=== PATIENT | female | born 2000 | race African-American/Black ===

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

== ENCOUNTER 2020-05-16 01:42 | Outpatient (CLI) | payer OTHER ==
[~2020-05-16] VITALS: Ht 180.3 cm; Wt 134.7 kg
[2020-05-16 01:50] VITALS: BP 114/69
--- NOTE | 2020-05-16 01:50 | NUR ---
EDD CUNHA presented to unit via ambulation from ED,with c/o ABD PAIN. EDD CUNHA weighed, gowned, voided, and to bed. EFHM and TOCO applied, VS taken. EDD CUNHA oriented to bed controls, call light, TV, heat, and A/C controls.
--- NOTE | 2020-05-16 02:00 | NUR ---
Pt c/o right sided lower abdominal pain that radiates to the back. Pt states the pain started around 1800. States the pain was 7/10. Denies any nausea, vomiting or difficult urinating. Pt states pain has decreased since then and is now a dull ache in her lower lumbar.
[2020-05-16 02:15] VITALS: BP 114/69
[2020-05-16 02:17] LABS: BILIRUBIN,URINE NEGATIVE (NEGATIVE); CLARITY,URINE CLEAR; COLOR,URINE YELLOW; GLUCOSE, URINE (UA) NEGATIVE (NEGATIVE); KETONES,URINE NEGATIVE (NEGATIVE); LEUKOCYTE ESTERASE ,URINE 2+ (NEGATIVE); NITRITE,URINE NEGATIVE (NEGATIVE); PH,URINE 6.5 (5-9); PROTEIN,URINE NEGATIVE (NEGATIVE)
[2020-05-16 02:48] LABS: BACTERIA,URINE MODERATE /HPF; CALCIUM OXALATE CRYSTALS,UR FEW /LPF; RBC,URINE RARE /HPF; SQUAMOUS EPITHELIAL CELL,UR 25-50 /HPF; WBC,URINE 50-100 /HPF
[2020-05-16] MEDS ORDERED: AMOXICILLIN 250 MG (POLYMOX) CAP PO ONE (02:58)
[2020-05-16] MEDS ORDERED: PREN-53 PO (03:00)
[2020-05-16] MEDS ORDERED: AMOXICILLIN 500 MG (POLYMOX) CAP PO ONE (03:00)
[2020-05-16] MEDS ORDERED: AMOX500C2 PO (03:05)
--- NOTE | 2020-05-16 03:10 | NUR ---
Discharge instructions verbalized with pt. pt verbalized understanding. labor precautions given. Pt will follow up in clinic with Dr.Enoch Jernigan called into [facility]
--- NOTE | 2020-05-19 09:52 | Physician Query-Final Dx ---
Clinic Account Progress/Dx Physician Query: Please give diagnosis Please include # weeks gestation Date of Service May 16, 2020 at 01:42 ERVIN MARLOW May 19, 2020 09:52
== END 2020-05-16 03:10 ==
LOC: WSo 01:42 → LDRP 01:48 → WSo 03:10
PROVIDERS: ATTEND Family Medicine
DX: O26.893 Other specified pregnancy related conditions, third trimester (principal); R10.9 Unspecified abdominal pain; Z3A.29 29 weeks gestation of pregnancy
CPT/HCPCS: 81000; 87077; 87088; G0463; 99213

== ENCOUNTER 2020-07-30 14:33 | Inpatient (IN) | payer OTHER ==
[2020-07-30] VITALS (11 sets, daily range): BP systolic 108–133; BP diastolic 56–77
[~2020-07-30] VITALS: Ht 177.8 cm; Wt 134.5 kg
[~2020-07-30 14:33] MED LIST changes: +AMOX500C2 PO; +PREN-53 PO
--- NOTE | 2020-07-30 14:40 | NUR ---
EDD CUNHA presented to unit via w/c from ED, accompanied by staff, with c/o CONTRACTIONS. EDD CUNHA weighed, gowned, voided, and to bed. EFHM and TOCO applied, VS taken. EDD CUNHA oriented to bed controls, call light, TV, heat, and A/C controls.
--- NOTE | 2020-07-30 15:10 | NUR ---
dr ordoñez called reviewed assessment, vitals, findings. new orders received.
[2020-07-30 15:30] LABS: BILIRUBIN,URINE 1+ (NEGATIVE); CLARITY,URINE CLEAR; COLOR,URINE AMBER; GLUCOSE, URINE (UA) NEGATIVE (NEGATIVE); KETONES,URINE TRACE (NEGATIVE); LEUKOCYTE ESTERASE ,URINE 3+ (NEGATIVE); NITRITE,URINE NEGATIVE (NEGATIVE); PROTEIN,URINE 1+ (NEGATIVE)
[2020-07-30 15:39] LABS: BACTERIA,URINE FEW /HPF; WBC,URINE 50-100 /HPF
[2020-07-30 15:51] LABS: BASOPHILS % (AUTO) 0 % (0-10); EOSINOPHILS % (AUTO) 0 % (0-10); HEMATOCRIT 34 % (35-52); HEMOGLOBIN 10.8 g/dL (11.5-16.0); LYMPHOCYTES # (AUTO) 0.8 10^3/uL (1.0-4.0); LYMPHOCYTES % (AUTO) 5 % (12-44); MEAN CORPUSCULAR HEMOGLOBIN 25 pg (25-34); MEAN CORPUSCULAR HGB CONC 32 g/dL (32-36); MEAN CORPUSCULAR VOLUME 78 fL (80-99); MEAN PLATELET VOLUME 10.7 fL (9.0-12.2); MONOCYTES # (AUTO) 0.8 10^3/uL (0.0-1.0); MONOCYTES % (AUTO) 5 % (0-12); NEUTROPHILS # (AUTO) 15.3 10^3/uL (1.8-7.8); NEUTROPHILS % (AUTO) 89 % (42-75); PLATELET COUNT 214 10^3/uL (130-400); WHITE BLOOD COUNT 17.1 10^3/uL (4.3-11.0)
[2020-07-30 16:04] LABS: ALBUMIN 3.7 GM/DL (3.2-4.5)
[2020-07-30 16:05] LABS: CHLORIDE 103 MMOL/L (98-107); POTASSIUM 3.7 MMOL/L (3.6-5.0); SODIUM 134 MMOL/L (135-145)
[2020-07-30 16:06] LABS: CALCIUM 9.4 MG/DL (8.5-10.1)
[2020-07-30 16:07] LABS: GLUCOSE 93 MG/DL (70-105); TOTAL PROTEIN 7.1 GM/DL (6.4-8.2)
[2020-07-30 16:08] LABS: CARBON DIOXIDE 20 MMOL/L (21-32)
[2020-07-30 16:09] LABS: BILIRUBIN,TOTAL 1.2 MG/DL (0.1-1.0)
[2020-07-30 16:10] LABS: ALKALINE PHOSPHATASE 144 U/L (40-136)
[2020-07-30 16:11] LABS: CREATININE SERUM 0.68 MG/DL (0.60-1.30); GFR ESTIMATED > 60
[2020-07-30 16:12] LABS: BUN/CREATININE RATIO 9
[2020-07-30 16:13] LABS: ALANINE AMINOTRANSFERASE 11 U/L (0-55)
--- NOTE | 2020-07-30 16:40 | NUR ---
DR GREEN TO OB FLOOR. INTO ROOM 319 TO ASSESS PATIENT STATUS AND INITIAL ASSESSMENT.
--- NOTE | 2020-07-30 17:04 | History & Physical ---
HPI History of Present Illness: 20-year-old currently at 40 weeks gestation presents to women's services with reports of low-grade fever and overall just not feeling very well. She has had slight shortness of breath but she has had no cough at least not on a regular basis. She does live with her sister who is supposedly in normal state of health. Patient denies being around anyone with coronavirus unless her sister had been around someone. She was seen yesterday at [facility] and had cervix check and she was noted to be 3 cm. Source: patient Date seen by provider: Jul 30, 2020 Time Seen by Provider: 17:00 Attending Physician Adriane Payne MD PCP Center/[facility] Consult Date of Admission Home Medications Home Medications Reviewed patient Home Medication Reconciliation performed by pharmacy medication reconciliations holter technician and/or nursing. Patients Allergies have been reviewed. Allergies Coded Allergies: No Known Drug Allergies (Unverified , 01/29/13) FUJ-Psnlvz-Qtuhob Hx Patient Social History 2nd Hand Smoke Exposure: No Recent Hopitalizations: No Immunizations Up To Date Date of Influenza Vaccine: Jul 07, 2020 Review of Systems ([facility]) Constitutional: see HPI Reviewed Test Results Reviewed Test Results Lab Laboratory Tests Test 07/30/20 15:20 07/30/20 15:42 07/30/20 15:55 Range/Units Urine Color ERIC H Urine Clarity CLEAR Urine pH 7.0 5-9 Urine Specific [place] 1.015 L 1.016-1.022 Urine Protein 1+ H NEGATIVE Urine Glucose (UA) NEGATIVE NEGATIVE Urine Ketones TRACE H NEGATIVE Urine Nitrite NEGATIVE NEGATIVE Urine Bilirubin 1+ H NEGATIVE Urine Urobilinogen 2.0 < = 1.0 MG/DL Urine Leukocyte Esterase 3+ H NEGATIVE Urine RBC (Auto) NEGATIVE NEGATIVE Urine RBC NONE /HPF Urine WBC 50-100 H /HPF Urine Squamous Epithelial Cells 10-25 H /HPF Urine Crystals NONE /LPF Urine Bacteria FEW H /HPF Urine Casts NONE /LPF Urine Mucus NEGATIVE /LPF Urine Culture Indicated CULTURE PENDING White Blood Count 17.1 H 4.3-11.0 10^3/uL Red Blood Count 4.33 3.80-5.11 10^6/uL Hemoglobin 10.8 L 11.5-16.0 g/dL Hematocrit 34 L 35-52 % Mean Corpuscular Volume 78 L 80-99 fL Mean Corpuscular Hemoglobin 25 25-34 pg Mean Corpuscular Hemoglobin Concent 32 32-36 g/dL Red Cell Distribution Width 14.5 10.0-14.5 % Platelet Count 214 130-400 10^3/uL Mean Platelet Volume 10.7 9.0-12.2 fL Immature Granulocyte % (Auto) 1 % Neutrophils (%) (Auto) 89 H 42-75 % Lymphocytes (%) (Auto) 5 L 12-44 % Monocytes (%) (Auto) 5 0-12 % Eosinophils (%) (Auto) 0 0-10 % Basophils (%) (Auto) 0 0-10 % Neutrophils # (Auto) 15.3 H 1.8-7.8 10^3/uL Lymphocytes # (Auto) 0.8 L 1.0-4.0 10^3/uL Monocytes # (Auto) 0.8 0.0-1.0 10^3/uL Eosinophils # (Auto) 0.0 0.0-0.3 10^3/uL Basophils # (Auto) 0.0 0.0-0.1 10^3/uL Immature Granulocyte # (Auto) 0.2 H 0.0-0.1 10^3/uL Sodium Level 134 L 135-145 MMOL/L Potassium Level 3.7 3.6-5.0 MMOL/L Chloride Level 103 98-107 MMOL/L Carbon Dioxide Level 20 L 21-32 MMOL/L Anion Gap 11 5-14 MMOL/L Blood Urea Nitrogen 6 L 7-18 MG/DL Creatinine 0.68 0.60-1.30 MG/DL Estimat Glomerular Filtration Rate > 60 BUN/Creatinine Ratio 9 Glucose Level 93 70-105 MG/DL Calcium Level 9.4 8.5-10.1 MG/DL Corrected Calcium 9.6 8.5-10.1 MG/DL Total Bilirubin 1.2 H 0.1-1.0 MG/DL Aspartate Amino Transf (AST/SGOT) 10 5-34 U/L Alanine Aminotransferase (ALT/SGPT) 11 0-55 U/L Alkaline Phosphatase 144 H 40-136 U/L Total Protein 7.1 6.4-8.2 GM/DL Albumin 3.7 3.2-4.5 GM/DL Physical Exam-([facility]) Physical Exam Vital Signs VS - Last 72 Hours, by Label 07/30/20 07/30/20 14:40 15:00 Temp 36.3 Pulse 127 Resp 22 Pulse Ox 98 98 O2 Delivery Room Air Room Air Capillary Refill : General Appearance: no apparent distress (at time of my exam) Neck: supple Respiratory: lungs clear Cardiovascular: regular rate, rhythm (rate of 110) Gastrointestinal: soft, other (Uterus non-tender) Extremities: normal capillary refill Neurologic/Psychiatric: alert, normal mood/affect, oriented x 3 Skin: normal color Assessment/Plan Assessment/Plan Admission Dx 1. Febrile illness -covid 19 screen neg -UTI based upon initial UA. Culture pending -exclude sepsis. 2. IUP at 40 weeks. -induction planned for Aug [address] Lucas (her primary ob) Admission Status: Observation Assessment & Plan 1. Febrile illness -covid 19 screen neg -UTI based upon initial UA. Urine culture pending -exclude sepsis. She does have an elevated white blood cell count but this may be related. She is also noted to have elevated pulse. Blood culture pending Awaiting LAC Intravenous fluids will begin a D5 LR at 125 mL per hour. Recheck laboratory in the morning which will include CBC as well as chemistry 14. 2. IUP at 40 weeks. -induction planned for Aug [address] Lucas (her primary ob) ADRIANE PAYNE MD Jul 30, 2020 17:04
[2020-07-30 17:22] LABS: PROTHROMBIN TIME PATIENT 13.5 SEC (12.2-14.7)
--- NOTE | 2020-07-30 17:35 | NUR ---
[id number] IV FLUIDS HUNG ORDERED. ABX STARTED. SEE EMAR. UP TO BATHROOM. COVID TESTING PERFORMED BILATERAL NARES BY THIS RN. SENT TO LAB. PATIENT REPORTS INCREASING ABDOMINAL PAIN. FAMILY AT BEDSIDE.
[2020-07-30] MEDS: D5 LR IV SOLUTION 1,000 ML IV SCH (17:45)
[2020-07-30] MEDS: cefTRIAXone FOR IV USE 1,000 MG in WATER (STERILE) FOR INJECTION 10 ML IV SCH (17:45)
--- NOTE | 2020-07-30 18:35 | NUR ---
dr ordoñez notified of current vitals sign, HR and increasing pain. new orders received. continuing to monitor.
[2020-07-30] MEDS ORDERED: BUTORPHANOL INJ 2 MG/ML (STADOL) VIAL IV PRN (18:45)
[2020-07-30] MEDS ORDERED: ACETAMINOPHEN 500 MG TAB (TYLENOL) PO PRN (18:45)
--- NOTE | 2020-07-30 20:26 | NUR ---
Dr. Payne called, plan of care reviewed with Discussed prior lab results and care, pt positive for chlamydia x2 and treated during , new orders received. Discussed MHR with and made aware of times, temp and HR when pt had fever.
[2020-07-30] MEDS ORDERED: AZITHROMYCIN 250 MG TAB (ZITHROMAX) PO ONE ×2 (20:41→21:00)
[2020-07-30] MEDS ORDERED: AZITHROMYCIN 100 MG/5 ML (ZITHROMAX) 15ML BTL PO ONE (20:45)
[2020-07-30 21:40] LABS: AMPHETAMINE SCREEN, URINE NEGATIVE (NEGATIVE); BARBITURATE SCREEN URINE NEGATIVE (NEGATIVE); BENZODIAZEPINES SCREEN URINE NEGATIVE (NEGATIVE); CANNABINOID SCREEN, URINE NEGATIVE (NEGATIVE); COCAINE SCREEN URINE NEGATIVE (NEGATIVE); METHADONE STAT NEGATIVE (NEGATIVE); METHAMPHETAMINE SCREEN URINE S NEGATIVE (NEGATIVE); OPIATE SCREEN URINE NEGATIVE (NEGATIVE); OXYCODONE STAT NEGATIVE (NEGATIVE); PROPOXYPHENE STAT NEGATIVE (NEGATIVE); TRICYCLIC ANTIDEPRESSANTS SCRE NEGATIVE (NEGATIVE)
[2020-07-31] MEDS: D5 LR IV SOLUTION 1,000 ML IV SCH ×4 (01:32→23:43)
[2020-07-31 05:15] VITALS: BP 119/66
--- NOTE | 2020-07-31 05:15 | NUR ---
Lab and RN to room at this time, pt denies pain unless she is getting up to BR.
[2020-07-31 05:30] LABS: BASOPHILS % (AUTO) 0 % (0-10); EOSINOPHILS % (AUTO) 0 % (0-10); HEMATOCRIT 34 % (35-52); HEMOGLOBIN 10.8 g/dL (11.5-16.0); LYMPHOCYTES # (AUTO) 1.8 10^3/uL (1.0-4.0); LYMPHOCYTES % (AUTO) 10 % (12-44); MEAN CORPUSCULAR HEMOGLOBIN 25 pg (25-34); MEAN CORPUSCULAR HGB CONC 32 g/dL (32-36); MEAN CORPUSCULAR VOLUME 78 fL (80-99); MEAN PLATELET VOLUME 10.5 fL (9.0-12.2); MONOCYTES # (AUTO) 1.1 10^3/uL (0.0-1.0); MONOCYTES % (AUTO) 6 % (0-12); NEUTROPHILS # (AUTO) 14.1 10^3/uL (1.8-7.8); NEUTROPHILS % (AUTO) 82 % (42-75); PLATELET COUNT 222 10^3/uL (130-400); WHITE BLOOD COUNT 17.3 10^3/uL (4.3-11.0)
[2020-07-31 05:51] LABS: ALBUMIN 3.7 GM/DL (3.2-4.5); CHLORIDE 104 MMOL/L (98-107); POTASSIUM 3.9 MMOL/L (3.6-5.0); SODIUM 134 MMOL/L (135-145)
[2020-07-31 05:52] LABS: CALCIUM 9.2 MG/DL (8.5-10.1)
[2020-07-31 05:53] LABS: GLUCOSE 102 MG/DL (70-105); TOTAL PROTEIN 7.2 GM/DL (6.4-8.2)
[2020-07-31 05:54] LABS: CARBON DIOXIDE 20 MMOL/L (21-32)
[2020-07-31 05:55] LABS: BILIRUBIN,TOTAL 0.6 MG/DL (0.1-1.0)
[2020-07-31 05:57] LABS: ALKALINE PHOSPHATASE 142 U/L (40-136); CREATININE SERUM 0.63 MG/DL (0.60-1.30); GFR ESTIMATED > 60
[2020-07-31 05:58] LABS: BUN/CREATININE RATIO 8
[2020-07-31 06:00] LABS: ALANINE AMINOTRANSFERASE 12 U/L (0-55)
--- NOTE | 2020-07-31 07:05 | Progress Note ---
Subjective Subjective/Events-last exam Patient appears to be resting comfortably this morning. She reports pressure in the pelvis. She denies any back pain or currently any chest pain. She denies a cough. Focused Exam Lactate Level 07/30/20 16:54: Lactic Acid Level 0.71 Objective Exam Last Set of Vital Signs Vital Signs Date Time Temp Pulse Resp B/P (MAP) Pulse Ox O2 Delivery O2 Flow Rate FiO2 07/31/20 06:45 35.9 07/31/20 05:15 94 20 119/66 (83) 98 Room Air Capillary Refill : Less Than 3 Seconds I&O Intake and Output 07/31/20 00:00 Daily Weight Change No General: No Acute Distress Lungs: Clear to Auscultation Heart: Regular Rate (with a rate of upper 90s) Abdomen: Soft Other physical findings cervix check reveals presenting part ballotable. Cervix is soft and essentially unchanged at 3 cm. Results/Procedures Lab Laboratory Tests 07/30/20 15:00: Urine Protein 38H, Urine Creatinine 232H, Urine Protein/Creatinine Ratio 0.16 07/30/20 15:20: Urine Protein 1+H, Urine Color AMBERH, Urine Clarity CLEAR, Urine pH 7.0, Urine Specific [place] 1.015L, Urine Glucose (UA) NEGATIVE, Urine Ketones TRACEH, Urine Nitrite NEGATIVE, Urine Bilirubin 1+H, Urine Urobilinogen 2.0, Urine Leukocyte Esterase 3+H, Urine RBC (Auto) NEGATIVE, Urine RBC NONE, Urine WBC 50- 100H, Urine Squamous Epithelial Cells 10-25H, Urine Crystals NONE, Urine Bacteria FEWH, Urine Casts NONE, Urine Mucus NEGATIVE, Urine Culture Indicated CULTURE PENDING 07/30/20 15:42: White Blood Count 17.1H, Red Blood Count 4.33, Hemoglobin 10.8L, Hematocrit 34L, Mean Corpuscular Volume 78L, Mean Corpuscular Hemoglobin 25, Mean Corpuscular Hemoglobin Concent 32, Red Cell Distribution Width 14.5, Platelet Count 214, Mean Platelet Volume 10.7, Immature Granulocyte % (Auto) 1, Neutrophils (%) (Auto) 89H, Lymphocytes (%) (Auto) 5L, Monocytes (%) (Auto) 5, Eosinophils (%) (Auto) 0, Basophils (%) (Auto) 0, Neutrophils # (Auto) 15.3H, Lymphocytes # (Auto) 0.8L, Monocytes # (Auto) 0.8, Eosinophils # (Auto) 0.0, Basophils # (Auto) 0.0, Immature Granulocyte # (Auto) 0.2H, Sodium Level 134L, Potassium Level 3.7, Chloride Level 103, Carbon Dioxide Level 20L, Anion Gap 11, Blood Urea Nitrogen 6L, Creatinine 0.68, Estimat Glomerular Filtration Rate > 60, BUN/Creatinine Ratio 9, Glucose Level 93, Calcium Level 9.4, Corrected Calcium 9.6, Total Bilirubin 1.2H, Aspartate Amino Transf (AST/SGOT) 10, Alanine Aminotransferase (ALT/SGPT) 11, Alkaline Phosphatase 144H, Total Protein 7.1, Albumin 3.7 07/30/20 15:55: Coronavirus 2019 (JORJE) Negative 07/30/20 16:54: Prothrombin Time 13.5, INR Comment 1.0, Activated Partial Thromboplast Time 28, Lactic Acid Level 0.71 07/30/20 17:50: 07/30/20 20:51: Urine Opiates Screen NEGATIVE, Urine Oxycodone Screen NEGATIVE, Urine Methadone Screen NEGATIVE, Urine Propoxyphene Screen NEGATIVE, Urine Barbiturates Screen NEGATIVE, Ur Tricyclic Antidepressants Screen NEGATIVE, Urine Phencyclidine Screen NEGATIVE, Urine Amphetamines Screen NEGATIVE, Urine Methamphetamines Screen NEGATIVE, Urine Benzodiazepines Screen NEGATIVE, Urine Cocaine Screen NEGATIVE, Urine Cannabinoids Screen NEGATIVE 07/31/20 05:10: White Blood Count 17.3H, Red Blood Count 4.41, Hemoglobin 10.8L, Hematocrit 34L, Mean Corpuscular Volume 78L, Mean Corpuscular Hemoglobin 25, Mean Corpuscular Hemoglobin Concent 32, Red Cell Distribution Width 14.6H, Platelet Count 222, Mean Platelet Volume 10.5, Immature Granulocyte % (Auto) 1, Neutrophils (%) (Auto) 82H, Lymphocytes (%) (Auto) 10L, Monocytes (%) (Auto) 6, Eosinophils (%) (Auto) 0, Basophils (%) (Auto) 0, Neutrophils # (Auto) 14.1H, Lymphocytes # (Auto) 1.8, Monocytes # (Auto) 1.1H, Eosinophils # (Auto) 0.0, Basophils # (Auto) 0.0, Immature Granulocyte # (Auto) 0.2H, Sodium Level 134L, Potassium Level 3.9, Chloride Level 104, Carbon Dioxide Level 20L, Anion Gap 10, Blood Urea Nitrogen 5L, Creatinine 0.63, Estimat Glomerular Filtration Rate > 60, BUN/Creatinine Ratio 8, Glucose Level 102, Calcium Level 9.2, Corrected Calcium 9.4, Total Bilirubin 0.6, Aspartate Amino Transf (AST/SGOT) 12, Alanine Aminotransferase (ALT/SGPT) 12, Alkaline Phosphatase 142H, Total Protein 7.2, Albumin 3.7 Assessment/Plan Assessment/Plan Assessment & Plan 1. Febrile illness -covid 19 screen neg -UTI based upon initial UA. Urine culture pending -exclude sepsis. She does have an elevated white blood cell count but this may be related. She is also noted to have elevated pulse. Blood culture pending Awaiting LAC Intravenous fluids will begin a D5 LR at 125 mL per hour. Recheck laboratory in the morning which will include CBC as well as chemistry 14. 07/31/2020 COVID-19 test is still pending. urine culture is pending. Day number 2 of Rocephin IV fluids continue at 125 mL per hour 2. IUP at 40 weeks. -induction planned for Aug [address] Lucas (her primary ob) Clinical Quality Measures DVT/VTE Risk/Contraindication: Risk Factor Score Per Nursin RFS Level Per Nursing on Admit: 2=Moderate ADRIANE GREEN MD Jul 31, 2020 07:05
[2020-07-31 08:20] VITALS: BP 124/66
[2020-07-31 13:00] VITALS: BP 105/62
[2020-07-31] MEDS: cefTRIAXone FOR IV USE 1,000 MG in WATER (STERILE) FOR INJECTION 10 ML IV SCH (16:08)
[2020-07-31 16:15] VITALS: BP 102/60
[2020-07-31 19:55] VITALS: BP 103/61
[2020-07-31 23:08] VITALS: BP 91/55
[2020-08-01] VITALS (48 sets, daily range): BP systolic 100–137; BP diastolic 51–81
[2020-08-01 05:09] LABS: BASOPHILS % (AUTO) 0 % (0-10); EOSINOPHILS # (AUTO) 0.1 10^3/uL (0.0-0.3); EOSINOPHILS % (AUTO) 1 % (0-10); HEMATOCRIT 33 % (35-52); HEMOGLOBIN 10.4 g/dL (11.5-16.0); LYMPHOCYTES # (AUTO) 2.2 10^3/uL (1.0-4.0); LYMPHOCYTES % (AUTO) 19 % (12-44); MEAN CORPUSCULAR HEMOGLOBIN 25 pg (25-34); MEAN CORPUSCULAR HGB CONC 32 g/dL (32-36); MEAN CORPUSCULAR VOLUME 78 fL (80-99); MEAN PLATELET VOLUME 10.3 fL (9.0-12.2); MONOCYTES # (AUTO) 0.7 10^3/uL (0.0-1.0); MONOCYTES % (AUTO) 6 % (0-12); NEUTROPHILS # (AUTO) 8.2 10^3/uL (1.8-7.8); NEUTROPHILS % (AUTO) 72 % (42-75); PLATELET COUNT 200 10^3/uL (130-400); WHITE BLOOD COUNT 11.4 10^3/uL (4.3-11.0)
--- NOTE | 2020-08-01 07:42 | Progress Note ---
Subjective Subjective/Events-last exam patient is feeling much better. She doesn't voice any contractions. Focused Exam Lactate Level 07/30/20 16:54: Lactic Acid Level 0.71 Objective Exam Last Set of Vital Signs Vital Signs Date Time Temp Pulse Resp B/P (MAP) Pulse Ox O2 Delivery O2 Flow Rate FiO2 08/01/20 04:10 36.1 74 20 118/57 (77) 97 Room Air Capillary Refill : Less Than 3 Seconds I&O Intake and Output 08/01/20 00:00 Intake Total 2900 ml Balance 2900 ml Intake IV Total 2900 ml General: No Acute Distress Lungs: Clear to Auscultation Heart: Regular Rate Abdomen: Soft Other physical findings cervix check reveals presenting part high. Cervical dilation previously reported 3 cm. Results/Procedures Lab Laboratory Tests 08/01/20 04:53: White Blood Count 11.4H, Red Blood Count 4.22, Hemoglobin 10.4L, Hematocrit 33L, Mean Corpuscular Volume 78L, Mean Corpuscular Hemoglobin 25, Mean Corpuscular Hemoglobin Concent 32, Red Cell Distribution Width 14.8H, Platelet Count 200, Mean Platelet Volume 10.3, Immature Granulocyte % (Auto) 1, Neutrophils (%) (Auto) 72, Lymphocytes (%) (Auto) 19, Monocytes (%) (Auto) 6, Eosinophils (%) (Auto) 1, Basophils (%) (Auto) 0, Neutrophils # (Auto) 8.2H, Lymphocytes # (Aut o) 2.2, Monocytes # (Auto) 0.7, Eosinophils # (Auto) 0.1, Basophils # (Auto) 0.0, Immature Granulocyte # (Auto) 0.2H Microbiology 07/30/20 Blood Culture - Preliminary, Resulted No growth 07/30/20 Urine Culture - Final, Complete Gram Pos Mixed Bacterial Sol Strep agalactiae Group B Assessment/Plan Assessment/Plan Assessment & Plan 1. Febrile illness -covid 19 screen neg -UTI based upon initial UA. Urine culture pending -exclude sepsis. She does have an elevated white blood cell count but this may be related. She is also noted to have elevated pulse. Blood culture pending Awaiting LAC Intravenous fluids will begin a D5 LR at 125 mL per hour. Recheck laboratory in the morning which will include CBC as well as chemistry 14. 07/31/2020 COVID-19 test is still pending. urine culture is pending. Day number 2 of Rocephin IV fluids continue at 125 mL per hour urine culture revealed group B strep. Blood cultures negative 08/01 COVID-19 is negative. Restrictions lifted Today she will have day number 3 Rocephin. 2. IUP at 40 weeks. -induction planned for Aug [address] Lucas (her primary ob) 08/01 noted 3 episodes of deceleration on NST this morning. At this point due to her gestational age of 40 weeks and 2 days she will remain inpatient Continued further monitoring. Bedside ultrasound revealed vertex presentation at this time. Clinical Quality Measures DVT/VTE Risk/Contraindication: Risk Factor Score Per Nursin RFS Level Per Nursing on Admit: 2=Moderate ADRIANE GREEN MD Aug 01, 2020 07:42
[2020-08-01] MEDS: D5 LR IV SOLUTION 1,000 ML IV SCH ×2 (07:50→17:11)
--- NOTE | 2020-08-01 08:00 | NUR ---
Liyah ASSESSMENT COMPLETED VSS. CARING FOR INFANT IN ROOM. Addendum: 08/01/20 at 0941 by ALYX WILLOUGHBY RN WRONG PATIENT
--- NOTE | 2020-08-01 10:26 | NUR ---
DR. GREEN CALLED TO CHECK ON PT. PLAN TO START CYTOTEC. ORDER TO CHECK CERVIX PRIOR TO ADMINISTERING CYTOTEC.
[2020-08-01] MEDS ORDERED: MISOPROSTOL 100 MCG (CYTOTEC) TAB PO NR (10:45)
[2020-08-01] MEDS ORDERED: TERBUTALINE INJ 1 MG/ML (BRETHINE) AMP SC PRN (10:45)
--- NOTE | 2020-08-01 11:00 | NUR ---
DR. GREEN NOTIFIED OF PT'S CERVICAL EXAM BEING 2.5 CM EXTERNALLY AND 1 CM INTERNALLY. APPROXIMATELY 60% EFFACED AND -4. EXTREMELY DIFFICULT EXAM.
[2020-08-01] MEDS ORDERED: MISOPROSTOL 100 MCG (CYTOTEC) TAB PO SCH (14:45)
--- NOTE | 2020-08-01 15:11 | NUR ---
DR. GREEN CALLED TO CHECK ON PT. UPDATE GIVEN. ORDERS TO START GBS PROTOCOL FOR AMPICILLIN AND D/C ROCEPHIN.
[2020-08-01] MEDS ORDERED: AMPICILLIN FOR IV USE 2,000 MG VIAL ONE (15:13)
[2020-08-01] MEDS ORDERED: AMPICILLIN FOR IV USE 2,000 MG in WATER (STERILE) FOR INJECTION 14.8 ML IV SCH (15:13)
[2020-08-01] MEDS ORDERED: WATER (STERILE) FOR INJECTION 0 ML ONE (15:14)
[2020-08-01] MEDS ORDERED: WATER (STERILE) FOR INJECTION 20 ML ONE (15:14)
--- NOTE | 2020-08-01 16:30 | NUR ---
Dr. Payne updated on pt status. SVE by Reina Pinon RN, bedside sono done to confirm presenting part. on way to hospital with plans for SROM.
--- NOTE | 2020-08-01 17:16 | Labor Progress Note ---
Labor Progress Note Labor Progress Note Date Seen by Provider: Aug 01, 2020 Time Seen by Provider: 17:00 Subjective: Pt denies complaints. She is starting to fill her contractions more. Cytotec was given to her last 330 p.m.. Objective: (Can we insert 24 hour vitals here?) Cervical exam: 3 cm Consistency: soft Position: -3 Presentation: vertex heart tones: 140beats per minute,good variability, reactive Tocometer: 3 ctx/10 minutes Assessment/Plan: Katie Sierra is a (20 /Para 1 / 0,Gestational Age (wks)40 here for []. CEFM/TOCO begin Pitocin at 730 p.m. Anesthesia: to be called for epidural Anticipate vaginal delivery. Vitals - Labs Vital Signs - I&O Vital Signs Date Time Temp Pulse Resp B/P (MAP) Pulse Ox O2 Delivery O2 Flow Rate FiO2 08/01/20 15:15 83 18 121/76 (91) 97 Room Air 08/01/20 14:15 70 18 125/60 (81) 98 Room Air 08/01/20 13:15 36.3 72 18 103/59 (74) 98 Room Air 08/01/20 12:00 36.2 75 18 103/51 (68) 99 Room Air 08/01/20 11:30 62 18 102/52 (69) 99 Room Air 08/01/20 11:00 36.6 73 18 113/59 (77) 98 Room Air 08/01/20 10:00 36.1 85 18 115/60 (78) 98 Room Air 08/01/20 09:00 36.2 87 18 116/61 (79) 98 Room Air 08/01/20 08:00 35.7 79 18 101/59 (73) 99 Room Air 08/01/20 06:00 36.2 72 20 106/57 (73) 98 Room Air 08/01/20 04:10 36.1 74 20 118/57 (77) 97 Room Air 07/31/20 23:08 35.6 86 20 91/55 (67) 98 Room Air 07/31/20 19:55 35.5 82 20 103/61 (75) 96 Room Air I & O 08/01/20 07:00 Intake Total 1900 ml Balance 1900 ml Labs Laboratory Tests 08/01/20 04:53: White Blood Count 11.4H, Red Blood Count 4.22, Hemoglobin 10.4L, Hematocrit 33L, Mean Corpuscular Volume 78L, Mean Corpuscular Hemoglobin 25, Mean Corpuscular Hemoglobin Concent 32, Red Cell Distribution Width 14.8H, Platelet Count 200, Mean Platelet Volume 10.3, Immature Granulocyte % (Auto) 1, Neutrophils (%) (Auto) 72, Lymphocytes (%) (Auto) 19, Monocytes (%) (Auto) 6, Eosinophils (%) (Auto) 1, Basophils (%) (Auto) 0, Neutrophils # (Auto) 8.2H, Lymphocytes # (Auto) 2.2, Monocytes # (Auto) 0.7, Eosinophils # (Auto) 0.1, Basophils # (Auto) 0.0, Immature Granulocyte # (Auto) 0.2H Microbiology 07/30/20 Blood Culture - Preliminary, Resulted No growth 07/30/20 Urine Culture - Final, Complete Gram Pos Mixed Bacterial Sol Strep agalactiae Group B ADRIANE GREEN MD Aug 01, 2020 17:16
[2020-08-01] MEDS ORDERED: fentaNYL 2 mcg/ml BUPIVA 0.125 100 ML ONE (18:04)
[2020-08-01] MEDS ORDERED: OXYTOCIN PRE-MIX DRIP 500 ML IV ONE (18:05)
[2020-08-01] MEDS ORDERED: LACTATED RINGERS 1,000 ML IV SCH (18:15)
[2020-08-01] MEDS ORDERED: MINERAL OIL CONCENTRATE 99.9% 15 ML UDC ONE (18:27)
[2020-08-01] MEDS ORDERED: MEPIVACAINE (CARBOCAINE) 2% 50 ML VIAL ONE (18:27)
[2020-08-01] MEDS ORDERED: BUPIVACAINE 0.25% 30 ML (SENSORCAINE) VIAL ONE (18:30)
[2020-08-01] MEDS ORDERED: fentaNYL INJECTION 100 MCG/2 ML AMP ONE ×2 (18:31→20:20)
[2020-08-01] MEDS ORDERED: LACTATED RINGERS 1,000 ML IV ONE (18:36)
[2020-08-01] MEDS ORDERED: fentaNYL 2 mcg/ml BUPIVA 0.125 100 ML IV SCH (18:36)
[2020-08-01] MEDS ORDERED: CATHETER FLUSH 10 ML SYR IV PRN (18:45)
[2020-08-01] MEDS ORDERED: NALOXONE 0.4 MG/ML 1 ML (NARCAN) VIAL IV PRN (18:45)
[2020-08-01] MEDS ORDERED: AMPICILLIN FOR IV USE 1,000 MG in WATER (STERILE) FOR INJECTION 7.4 ML IV SCH (19:15)
[2020-08-01] MEDS ORDERED: OXYTOCIN PRE-MIX DRIP 500 ML IV SCH ×2 (19:39→20:43)
[2020-08-01] MEDS ORDERED: ceFAZolin 2 GM IV Premixed 50 ML ONE (20:04)
[2020-08-01] MEDS ORDERED: CITRIC ACID/SOB CIT (BICITRA) 30 ML UDC ONE (20:04)
[2020-08-01] MEDS ORDERED: METOCLOPRAMIDE INJ 10 MG/2 ML (REGLAN) ONE (20:04)
[2020-08-01] MEDS ORDERED: FAMOTIDINE 20MG/2ML IV (PEPCID) ONE (20:05)
[2020-08-01] MEDS ORDERED: LACTATED RINGERS 1,000 ML IV PRN (20:13)
--- NOTE | 2020-08-01 20:14 | Labor Progress Note ---
Labor Progress Note Labor Progress Note Date Seen by Provider: Aug 01, 2020 Time Seen by Provider: 20:00 Subjective: Epidural 1 hour ago. Tolerating pain better. Objective: Cervical exam: 6-7 Consistency: soft Position: -3 Presentation: vertex heart tones: 60-130 beats per minute, good variability, reactive Tocometer: 3 ctx/10 minutes Assessment/Plan: Katie Sierra is a (20 /Para 1 / 0,Gestational Age (wks)40 here for []. CEFM/TOCO surgery crew notified due to the recurrent decels Dr Stallings notified. Patient agrees with primary LTCS subq terb given. Ancef 2gm IV given Vitals - Labs Vital Signs - I&O Vital Signs Date Time Temp Pulse Resp B/P (MAP) Pulse Ox O2 Delivery O2 Flow Rate FiO2 08/01/20 15:15 83 18 121/76 (91) 97 Room Air 08/01/20 14:15 70 18 125/60 (81) 98 Room Air 08/01/20 13:15 36.3 72 18 103/59 (74) 98 Room Air 08/01/20 12:00 36.2 75 18 103/51 (68) 99 Room Air 08/01/20 11:30 62 18 102/52 (69) 99 Room Air 08/01/20 11:00 36.6 73 18 113/59 (77) 98 Room Air 08/01/20 10:00 36.1 85 18 115/60 (78) 98 Room Air 08/01/20 09:00 36.2 87 18 116/61 (79) 98 Room Air 08/01/20 08:00 35.7 79 18 101/59 (73) 99 Room Air 08/01/20 06:00 36.2 72 20 106/57 (73) 98 Room Air 08/01/20 04:10 36.1 74 20 118/57 (77) 97 Room Air 07/31/20 23:08 35.6 86 20 91/55 (67) 98 Room Air I & O 08/01/20 07:00 Intake Total 1900 ml Balance 1900 ml Labs Laboratory Tests 08/01/20 04:53: White Blood Count 11.4H, Red Blood Count 4.22, Hemoglobin 10.4L, Hematocrit 33L, Mean Corpuscular Volume 78L, Mean Corpuscular Hemoglobin 25, Mean Corpuscular Hemoglobin Concent 32, Red Cell Distribution Width 14.8H, Platelet Count 200, Mean Platelet Volume 10.3, Immature Granulocyte % (Auto) 1, Neutrophils (%) (Auto) 72, Lymphocytes (%) (Auto) 19, Monocytes (%) (Auto) 6, Eosinophils (%) (Auto) 1, Basophils (%) (Auto) 0, Neutrophils # (Auto) 8.2H, Lymphocytes # (Auto) 2.2, Monocytes # (Auto) 0.7, Eosinophils # (Auto) 0.1, Basophils # (Auto) 0.0, Immature Granulocyte # (Auto) 0.2H Microbiology 07/30/20 Blood Culture - Preliminary, Resulted No growth 07/30/20 Urine Culture - Final, Complete Gram Pos Mixed Bacterial Sol Strep agalactiae Group B ADRIANE GREEN MD Aug 01, 2020 20:14
[2020-08-01] MEDS ORDERED: CITRIC ACID/SOB CIT (BICITRA) 30 ML UDC PO ONE (20:15)
[2020-08-01] MEDS ORDERED: METOCLOPRAMIDE INJ 10 MG/2 ML (REGLAN) IV ONE (20:15)
[2020-08-01] MEDS ORDERED: LIDOCAINE PF 2% 5 ML (XYLOCAINE) VIAL ONE (20:19)
[2020-08-01] MEDS ORDERED: OXYTOCIN PRE-MIX DRIP 1,000 ML IV ONE (20:28)
[2020-08-01] MEDS ORDERED: FAMOTIDINE 20MG/2ML IV (PEPCID) IV ONE (20:30)
[2020-08-01] MEDS ORDERED: HYDROcodone/APAP 5 MG/325 MG (LORTAB) TAB PO PRN (20:45)
[2020-08-01] MEDS ORDERED: TETANUS,DIPTH,PERTUSS P/F (BOOSTRIX) 0.5 ML VIAL IM SCH (20:45)
[2020-08-01] MEDS ORDERED: ONDANSETRON 4 MG/2 ML (SDV) Z0FRAN IVP PRN ×2 (20:45→22:00)
[2020-08-01] MEDS ORDERED: MEASLES,MUMPS,RUBELLA 1 EA INJ SC SCH (20:45)
[2020-08-01] MEDS ORDERED: BUPIVACAINE 0.5% 30 ML (SENSORCAINE) VIAL ONE (20:47)
--- NOTE | 2020-08-01 20:54 | Consultation ---
History of Present Illness History of Present Illness Patient Consulted On(liz/time) 08/01/20 20:48 Date Seen by Provider: Aug 01, 2020 Time Seen by Provider: 08:35 Reason for Visit: Fever in History of Present Illness Patient admitted by Dr. Payne for PUI COVID and Sepsis criteria. Patient was ruled out, and induction was planned due to a heart rate deceleration. Cytotec was used x 2, and AROM was performed, she was started on Ampicillin due to GBS + urine. She progressed to 6 cm, and distress was noted, recurrent FHR variable decelerations. Allergies and Home Medications Allergies Coded Allergies: No Known Drug Allergies (Unverified , 01/29/13) Home Medications Amoxicillin 500 Mg Capsule, 500 MG PO BID Prescribed by: MOODY SUBRAMANIAN on 05/16/20 0305 [id number]/Iron Fumarate/FA/Dss 1 Each Tablet, 1 EACH PO DAILY, (Reported) Patient Home Medication List Home Medication List Reviewed: Yes Past Ossjjky-Oneamz-Iilhjs Hx Patient Social History Alcohol Use: Denies Use Recreational Drug Use: No Smoking Status: Never a Smoker 2nd Hand Smoke Exposure: No Recent Foreign Travel: No Contact w/Someone Who Travel: No Recent Infectious Disease Expo: No Recent Hopitalizations: No Physical Abuse: No Sexual Abuse: No Mistreated: No Fear: No Immunizations Up To Date PED Vaccines UTD: Yes Date of Influenza Vaccine: Jul 07, 2020 Seasonal Allergies Seasonal Allergies: No Past Medical History Surgeries: No Respiratory: No Cardiac: No Neurological: No Expected Date of Delivery: Jul 30, 2020 Hx : 1 Hx Para: 0 Hx Total # of Abortions (Sp): 0 Genitourinary: No Gastrointestinal: No Musculoskeletal: No Endocrine: No HEENT: No Cancer: No Psychosocial: No Integumentary: No Blood Disorders: No Family Medical History Arthritis MATERNAL GRANDFATHER Asthma 19 MOTHER MATERNAL GRANDMOTHER Cardiovascular disease MATERNAL GRANDMOTHER Cataracts MATERNAL GRANDMOTHER Colon cancer MATERNAL AUNT Congenital disease Congenital heart disease MATERNAL GRANDMOTHER Hypercholesterolemia MATERNAL GRANDMOTHER Hypertension MATERNAL GRANDMOTHER Kidney disease MATERNAL GRANDMOTHER Myocardial infarction MATERNAL GRANDMOTHER Osteoporosis MATERNAL GRANDMOTHER Psychosocial problem G8 SISTER Seizure disorder 19 MOTHER Sickle cell trait in father 19 FATHER Thyroid disease MATERNAL GRANDMOTHER Visual disorder G8 SISTER MATERNAL GRANDMOTHER MATERNAL GRANDFATHER PATERNAL GRANDMOTHER PATERNAL GRANDFATHER MATERNAL AUNT Review of Systems-General Constitutional: see HPI EENTM: see HPI Respiratory: see HPI Cardiovascular: see HPI Gastrointestinal: see HPI Genitourinary: see HPI : Yes Expected Date of Delivery: Jul 30, 2020 Musculoskeletal: see HPI Skin: see HPI Psychiatric/Neurological: See HPI All Other Systems Reviewed Negative Unless Noted: Yes Physical Exam-General Problems Physical Exam Vital Signs Vital Signs - First Documented 07/30/20 07/30/20 07/30/20 14:40 15:00 15:45 Temp 36.3 Pulse 127 Resp 22 B/P (MAP) 114/58 (76) Pulse Ox 98 O2 Delivery Room Air Capillary Refill : Less Than 3 Seconds General Appearance: WD/WN HEENT: normal ENT inspection Neck: non-tender Respiratory: normal breath sounds Cardiovascular: regular rate, rhythm Gastrointestinal: normal bowel sounds Back: normal inspection Extremities: normal range of motion Neurologic/Psychiatric: oriented x 3 Skin: normal color Lymphatic: no adenopathy Assessment/Plan Assessment/Plan Admission Diagnosis/Plan Diagnosis: 20 yo @ 40.2 intolerance of labor GBS pos Admission Status: Inpatient Order (span 2 midnights) Clinical Quality Measures DVT/VTE Risk/Contraindication: Risk Factor Score Per Nursin RFS Level Per Nursing on Admit: 2=Moderate FENJOSE IRBY DO Aug 01, 2020 20:54
[2020-08-01] MEDS ORDERED: proPOfol 200 MG/20 ML (DIPRIVAN) VIAL IV ONE (21:13)
[2020-08-01] MEDS ORDERED: CATHETER FLUSH 10 ML SYR IV SCH (22:00)
[2020-08-01] MEDS ORDERED: KETOROLAC 30 MG/ML VIAL IVP ONE (22:00)
[2020-08-01] MEDS ORDERED: HYDROmorphone 2 MG/ML VIAL (DILAUDID) IV ONE (22:00)
--- NOTE | 2020-08-01 22:30 | OPERATIVE REPORT ---
DATE OF SERVICE: PREOPERATIVE DIAGNOSES: 1. A 20-year-old G1, P0 at 40 weeks and 2 days gestation. 2. intolerance of labor. POSTOPERATIVE DIAGNOSES: 1. A 20-year-old G1, P0 at 40 weeks and 2 days gestation. 2. intolerance of labor. PROCEDURE: Primary low transverse section. SURGEON: Fadi Stallings DO SMOG TECHNICIAN: Dillan Payne MD, who was necessary for manipulation and retraction throughout the procedure. ANESTHESIA: Epidural, which was bolused. ESTIMATED BLOOD LOSS: 350 mL. URINE OUTPUT: 650 mL clear at the end of procedure. FLUIDS: 500 mL lactated Ringer's solution. FINDINGS: A live male infant, weight pending. Apgars of 8 and 9. Grossly normal appearing uterus, bilateral fallopian tubes and ovaries. SPECIMEN SENT: Placenta. INDICATIONS FOR PROCEDURE: This 20-year-old female is a patient who was admitted by Dr. Payne after having care with Dr. Lucas. She was initially a COVID PUI, had elevated heart rate and respiration rate at admission, the COVID testing came back negative both rapid and confirmatory. She did have an elevated white count, was started on antibiotics and was found to have GBS in her urine. With antibiotics her status changed and she improved; however, prior to the decision to discharge the patient, there was a large heart rate deceleration on the monitor and therefore the decision was made due to postdates to proceed with induction of labor. She was given misoprostol x2 doses by Dr. Payne and artificial rupture of membranes was performed. She progressed without further augmentation to 6 cm dilation and received an epidural for analgesia. At which point the fetus began having repetitive variable decelerations down to the 60s with good recovery to baseline and good variability; however, due to intolerance of labor and remoteness from delivery, the decision was made by Dr. Payne and myself to proceed with primary . I came to the hospital, discussed this with the patient in detail. I discussed the risks of procedure including risk of bleeding, infection, damage to surrounding structures including, but not limited to bowel, bladder, ureter, kidneys, possible need for reoperation, postoperative complications that could occur, possible need for reoperation, recovery timeframe, possible need for blood transfusion. After everything was discussed with the patient in detail and all of her questions were answered with her mother present, consent was obtained, the patient was taken to the operating room. OPERATIVE REPORT IN DETAIL: Once in the operating room, after epidural analgesia was tested and found to be adequate. She was placed in supine position with leftward tilt, prepped and draped in normal sterile fashion. A timeout was performed. A Pfannenstiel skin incision was made with a knife and carried down layer of fascia using Bovie cautery. Fascial incision extended laterally using Bovie cautery. Superior aspect of the fascial incision was then grasped with Abdias clamps, tented up and dissected off the underlying rectus muscles. Inferior aspect of fascial incision was then grasped with Abdias clamps, tented up and dissected off the underlying rectus muscles. Rectus muscles were then dissected down the midline using Kong scissors, which exposed the peritoneum, which I entered bluntly and extended using blunt traction. Dany ring retractor was placed in the peritoneal incision, which offers excellent lateral sidewall retraction. I identified the lower uterine segment, which was found to be thinned out. I made a low transverse incision to the vesicouterine peritoneum and bluntly dissected off the lower uterine segment. I proceeded with myotomy until membranes were visualized, which fornix extended the uterine incision laterally and superiorly using bandage scissors. Amniotomy was performed in the process of doing this, clear fluid was noted. The was found in vertex presentation. With gentle fundal pressure, the infant's head is elevated up the incision where it was delivered through the incision. The nares and oropharynx were bulb suctioned. Anterior and posterior shoulders were delivered. Infant was then brought to the operative field with cord doubly clamped and cut and infant was taken off the operative field by Dr. Payne for further attendance. Cord blood was collected, 3-vessel cord with intact placenta was delivered spontaneously thereafter. IV Pitocin was initiated to facilitate uterine contraction. Uterine fundus confirmed by manual massage. Uterus was then exteriorized and cleared of all endometrial clots and debris. I then proceeded with closing the uterine incision using 0 Vicryl suture in running locked fashion. Second layer of imbricating 0 Monocryl was placed. Excellent hemostasis was noted after doing this. I then placed the uterus back in the pelvis and copiously irrigated the pelvis using normal saline. There was no active bleeding noted from any of my dissection planes. I placed Interceed antiadhesive over my low transverse incision and proceeded with closing the peritoneum. At that point, after removing the Dany ring retractor. The peritoneum was reapproximated using 3-0 Vicryl suture in running fashion. Rectus muscle reapproximated using 3-0 Vicryl suture in interrupted fashion. The fascia was reapproximated using 0 Vicryl suture in running fashion. Subcutaneous tissue was reapproximated using 3-0 plain interrupted subcutaneous stitch and skin reapproximated using 4-0 Monocryl running subcuticular. Dermabond was applied to incision and sterile dressing with adhesive white tape. The patient tolerated the procedure well and sent to recovery in stable condition. Lap and sponge counts were correct at the end of the procedure. Instrument counts correct as well. Two grams of Ancef given preoperatively for infection prophylaxis. Job ID: [id number] DocumentID: [id number] Dictated Date: 08/01/2020 21:35:19 Termite Control Servicer Date: 08/01/2020 22:29:03 Dictated By: FADI STALLINGS DO
--- NOTE | 2020-08-01 22:40 | NUR ---
pt tx from or recovery room to 307. pt orientated to room. info papers discussed. vs taken. ff 1 below/. light rubra. pad change. pericare completed. pt denies needs at this time. will continue to monitor.
[2020-08-01] MEDS: KETOROLAC 30 MG/ML VIAL IV SCH (22:57)
[2020-08-01] MEDS ORDERED: HYDROcodone/APAP 5 MG/325 MG (LORTAB) TAB ONE (23:52)
[2020-08-02] MEDS: HYDROcodone/APAP 5 MG/325 MG (LORTAB) TAB PO PRN ×2 (00:28→06:17)
[2020-08-02 04:00] VITALS: BP 122/71
--- NOTE | 2020-08-02 04:00 | NUR ---
Pt up to the bathroom. positive void. pericare completed. pt assisted back in bed. Pt going to rest. Lights turned down. Denies any further needs. Will continue to monitor.
[2020-08-02] MEDS: DOCUSATE SODIUM 100 MG (COLACE) CAP PO SCH ×2 (04:27→08:52)
[2020-08-02] MEDS: KETOROLAC 30 MG/ML VIAL IV SCH ×3 (06:18→18:18)
[2020-08-02 06:35] VITALS: BP 120/69
[2020-08-02 06:51] LABS: HEMATOCRIT 31 % (35-52); MEAN CORPUSCULAR HEMOGLOBIN 25 pg (25-34); MEAN CORPUSCULAR HGB CONC 32 g/dL (32-36); MEAN CORPUSCULAR VOLUME 77 fL (80-99); PLATELET COUNT 193 10^3/uL (130-400); WHITE BLOOD COUNT 12.5 10^3/uL (4.3-11.0)
[2020-08-02 06:52] LABS: LYMPHOCYTES # (AUTO) 1.6 10^3/uL (1.0-4.0); MEAN PLATELET VOLUME 10.6 fL (9.0-12.2); MONOCYTES # (AUTO) 0.7 10^3/uL (0.0-1.0); NEUTROPHILS % (AUTO) 81 % (42-75)
[2020-08-02 06:53] LABS: BASOPHILS % (AUTO) 0 % (0-10); EOSINOPHILS % (AUTO) 0 % (0-10); LYMPHOCYTES % (AUTO) 13 % (12-44); MONOCYTES % (AUTO) 6 % (0-12); NEUTROPHILS # (AUTO) 10.1 10^3/uL (1.8-7.8)
[2020-08-02 08:50] VITALS: BP 128/76
--- NOTE | 2020-08-02 10:56 | Anesthesia-Regional Post-Op ---
Regional Patient Condition Mental Status: Alert, Oriented x3 Circulation: Same as Pre-Op Headache: Absent Sensation: Full Recovery Motor Block: Absent Post Op Complications Complications None Follow Up Care/Instructions Patient Instructions None needed. Anesthesia/Patient Condition Patient is doing well, no complaints, stable vital signs, no apparent adverse anesthesia problems. No complications reported per nursing. D/C home per [facility] Criteria: No SON DOUGHERTY CRNA Aug 02, 2020 10:56
--- NOTE | 2020-08-02 12:27 | Postpartum Progress Note ---
Note Note Day # 1 Subjective: Patient is without complaints. Ambulating, voiding. Tolerating a regular diet without nausea or vomiting. Normal lochia. Pain is well controlled with oral pain medications. Objective: Physical Exam: General - Alert and oriented, no apparent distress Abdomen - Soft, appropriately tender to palpation, non-distended, fundus firm at umbilicus Extremities - no edema, negative Jacob's bilaterally Incision- c/d/i Assessment: POD 1 PLTCS Acute blood loss anemia Plan: Routine care. Encourage breast feeding. Encourage ambulation. Ferrous sulfate supplementation. Plan for discharge tomorrow Vitals - Labs Vital Signs - I&O Vital Signs Date Time Temp Pulse Resp B/P (MAP) Pulse Ox O2 Delivery O2 Flow Rate FiO2 08/02/20 08:50 36.2 84 18 128/76 (93) 97 Room Air 08/02/20 06:35 36.1 70 18 120/69 (86) 98 Room Air 08/02/20 04:00 37.5 88 18 122/71 (88) 98 Room Air 08/01/20 23:30 36.1 73 18 125/70 (88) 98 Room Air 08/01/20 23:00 36.1 67 18 118/72 (87) 96 Room Air 08/01/20 22:33 36.2 18 109/67 (81) 98 Room Air 08/01/20 22:18 36.1 18 113/71 (85) 99 Room Air 08/01/20 22:03 36.0 18 109/78 (88) 100 Room Air 08/01/20 21:48 36.1 18 100/75 (83) 100 Room Air 08/01/20 20:40 77 18 125/60 (81) Room Air 08/01/20 20:33 86 18 132/75 (94) Room Air 08/01/20 20:30 90 18 123/68 (86) Room Air 08/01/20 20:18 61 18 133/67 (89) Room Air 08/01/20 20:13 66 18 132/68 (89) Room Air 08/01/20 20:06 64 18 130/64 (86) 99 Room Air 08/01/20 20:01 65 18 130/63 (85) 99 Room Air 08/01/20 19:57 61 18 132/65 (87) 99 Room Air 08/01/20 19:53 62 18 130/65 (86) 99 Room Air 08/01/20 19:45 73 18 120/57 (78) 99 Room Air 08/01/20 19:40 73 18 119/57 (77) 99 Room Air 08/01/20 19:36 64 18 117/57 (77) 99 Room Air 08/01/20 19:33 65 18 122/61 (81) 99 Room Air 08/01/20 19:30 66 18 112/66 (81) 99 Room Air 08/01/20 19:26 71 18 111/57 (75) 99 Room Air 08/01/20 19:23 75 18 114/57 (76) 99 Room Air 08/01/20 19:20 75 18 107/55 (72) 99 Room Air 08/01/20 19:16 70 18 115/58 (77) 99 Room Air 08/01/20 19:13 70 18 116/61 (79) 97 Room Air 08/01/20 19:10 67 18 119/64 (82) 99 Room Air 08/01/20 19:07 36.1 69 18 117/63 (81) 99 Room Air 08/01/20 19:03 86 18 117/60 (79) 99 Room Air 08/01/20 19:00 79 18 118/62 (80) 98 Room Air 08/01/20 18:58 72 18 122/66 (84) 99 Room Air 08/01/20 18:57 82 18 127/62 (83) 99 Room Air 08/01/20 18:55 109 18 131/81 (98) 99 Non Rebreather 15.00 08/01/20 18:30 72 18 137/81 (99) 100 Non Rebreather 15.00 08/01/20 18:00 75 18 126/59 (81) Non Rebreather 15.00 08/01/20 17:34 Non Rebreather 15.00 08/01/20 17:30 36.7 75 18 118/68 (85) 99 Room Air 08/01/20 17:00 75 18 121/67 (85) 98 Room Air 08/01/20 16:15 36.2 76 18 119/69 (86) 98 Room Air 08/01/20 15:15 83 18 121/76 (91) 97 Room Air 08/01/20 14:15 70 18 125/60 (81) 98 Room Air 08/01/20 13:15 36.3 72 18 103/59 (74) 98 Room Air I & O 08/02/20 07:00 Intake Total 2102.2 ml Output Total 1240 ml Balance 862.2 ml Labs Laboratory Tests 08/02/20 06:40: White Blood Count 12.5H, Red Blood Count 4.06, Hemoglobin 10.0L, Hematocrit 31L, Mean Corpuscular Volume 77L, Mean Corpuscular Hemoglobin 25, Mean Corpuscular Hemoglobin Concent 32, Red Cell Distribution Width 14.6H, Platelet Count 193, Mean Platelet Volume 10.6, Immature Granulocyte % (Auto) 1, Neutrophils (%) (Auto) 81H, Lymphocytes (%) (Auto) 13, Monocytes (%) (Auto) 6, Eosinophils (%) (Auto) 0, Basophils (%) (Auto) 0, Neutrophils # (Auto) 10.1H, Lymphocytes # (Auto) 1.6, Monocytes # (Auto) 0.7, Eosinophils # (Auto) 0.0, Basophils # (Auto) 0.0, Immature Granulocyte # (Auto) 0.1 Microbiology 07/30/20 Blood Culture - Preliminary, Resulted No growth 07/30/20 Urine Culture - Final, Complete Gram Pos Mixed Bacterial Sol Strep agalactiae Group B JOSE GARZA DO Aug 02, 2020 12:26
[2020-08-02] MEDS ORDERED: ACHD5005 PO (12:30)
[2020-08-02] MEDS ORDERED: IBUP-844 PO (12:30)
[2020-08-02] MEDS ORDERED: DCS100C PO (12:30)
--- NOTE | 2020-08-02 12:33 | Discharge Inst-Women's Service ---
Discharge Inst-Women's Serv Depart Medication/Instructions New, Converted or Re-Newed RX: RX on Chart Final Diagnosis POD 2 PLTCS Problems Reviewed?: Yes Consults/Follow Up Additional Follow Up: Yes Orders/Referrals Dr. Stallings in 7-10 days, Dr. Lucas in 6 weeks. Activity Activity: Activity as Tolerated Driving Instructions: No Driving for 1 Week NO SMOKING: NO SMOKING Nothing Inside Vagina: No Douching, No [place], No Tampons Diet Discharge Diet: No Restrictions Symptoms to Report to : Bleeding Excessive, Pain Increased, Fever Over 101 Degrees F, Vaginal Bleeding Increase, Questions/Concerns For Any Problems or Questions: Contact Your Physician Skin/Wound Care Infection Signs and Symptoms: Increased Redness, Foul Odor of Wound, Increased Drainage, Skin Itchy or Has a Rash, Increased Swelling, Temperature Above 101 F Operative Area Clean and Dry: Keep Incision Clean/Dry Stitches/Etta/Dermabond: Dermabond, Care of Stitches Bathing Instructions: JOSE Hitchcock DO Aug 02, 2020 12:33
[2020-08-02 13:00] VITALS: BP 121/72
[2020-08-02 16:20] VITALS: BP 116/73
[2020-08-02 19:15] VITALS: BP 106/70
--- NOTE | 2020-08-02 19:15 | NUR ---
Pt sitting at side of bed. VS taken, assessment performed. POC discussed, pt verbalized understanding. No concerns voiced.
[2020-08-03] MEDS: IBUPROFEN 600 MG (MOTRIN) TAB PO SCH ×3 (00:19→12:49)
[2020-08-03] MEDS: DOCUSATE SODIUM 100 MG (COLACE) CAP PO SCH ×2 (00:19→08:08)
[2020-08-03 00:20] VITALS: BP 120/70
[2020-08-03] MEDS: HYDROcodone/APAP 5 MG/325 MG (LORTAB) TAB PO PRN (01:35)
[2020-08-03 06:00] VITALS: BP 120/65
[2020-08-03 08:00] VITALS: BP 109/63
--- NOTE | 2020-08-03 08:00 | NUR ---
A.M. ASSESSMENT COMPLETED. VSS. CARING FOR INFANT IN ROOM. .
--- NOTE | 2020-08-03 09:17 | Postpartum Progress Note ---
Note Note Day # 2 Subjective: Patient is without complaints. Ambulating, voiding. Tolerating a regular diet without nausea or vomiting. Normal lochia. Pain is well controlled with oral pain medications. Objective: Physical Exam: General - Alert and oriented, no apparent distress Abdomen - Soft, appropriately tender to palpation, non-distended, fundus firm at umbilicus Extremities - no edema, negative Jacob's bilaterally Incision- c/d/i Assessment: POD 2 PLTCS Plan: Routine care. Encourage breast feeding. Encourage ambulation. Ferrous sulfate supplementation. Plan for discharge today Vitals - Labs Vital Signs - I&O Vital Signs Date Time Temp Pulse Resp B/P (MAP) Pulse Ox O2 Delivery O2 Flow Rate FiO2 08/03/20 06:00 36.3 80 18 120/65 (83) 98 08/03/20 00:20 36.4 94 18 120/70 (87) 96 Room Air 08/02/20 19:15 36.3 75 18 106/70 (82) 97 08/02/20 16:20 36.1 82 18 116/73 (87) 98 Room Air 08/02/20 13:00 36.1 83 18 121/72 (88) 97 Room Air I & O 08/03/20 07:00 Intake Total 300 ml Output Total 1000 ml Balance -700 ml Labs Microbiology 07/30/20 Blood Culture - Preliminary, Resulted No growth 07/30/20 Urine Culture - Final, Complete Gram Pos Mixed Bacterial Sol Strep agalactiae Group B JOSE GARZA DO Aug 03, 2020 09:17
--- NOTE | 2020-08-03 09:45 | NUR ---
IN TO ASSIST PT WITH .
--- NOTE | 2020-08-03 12:30 | NUR ---
SITTING UP IN CHAIR INFANT. GOOD INTERACTION NOTED. OFFERS NO COMPLAINTS.
--- NOTE | 2020-08-03 14:15 | NUR ---
Prescriptions given to family for filling
--- NOTE | 2020-08-03 18:28 | NUR ---
Discharge instructions explained to pt with copy provided to pt. Pt verbalizes understanding of instructions and signs to verify. Pt denies questions or concerns at this time. Pt to remain in room 307 as boarder parent while requires extended care.
== END 2020-08-03 18:28 | disposition home or self-care (01) | DRG 787 ==
LOC: WSo 14:33 → LDRP 14:37 → WSo 07-31 07:30 → OBSVTOIN 07-31 07:54 → LDRP 08-01 22:13
PROVIDERS: ADMIT Family Medicine; ATTEND Family Medicine
PROC: 3E0DXGC Introduction of Other Therapeutic Substance into Mouth and Pharynx, External Approach (ICD-10-PCS; 2020-08-01)
PROC: 10D00Z1 Extraction of Products of Conception, Low, Open Approach (ICD-10-PCS; principal; 2020-08-01 20:46)
DX: O48.0 Post-term pregnancy (principal); O23.43 Unspecified infection of urinary tract in pregnancy, third trimester; D62 Acute posthemorrhagic anemia; O76 Abnormality in fetal heart rate and rhythm complicating labor and delivery; Z3A.40 40 weeks gestation of pregnancy; Z37.0 Single live birth; B95.1 Streptococcus, group B, as the cause of diseases classified elsewhere; O90.81 Anemia of the puerperium; Z20.828 Contact with and (suspected) exposure to other viral communicable diseases
CPT/HCPCS: 36415; 80053; 80306; 81000; 82570; 83605; 84156; 85025; 85610; 85730; 86780; 86850; 86900; 86901; 87040; 87077; 87088; 87491; 87635